=== PATIENT | female | born 1965 | race Caucasian/White ===

== ENCOUNTER 2016-06-17 15:22 | Outpatient (CLI) | END 2016-06-17 15:23 | disposition home or self-care (01) | LOC: LAB 15:22 | PROVIDERS: ATTEND Nurse Practitioner Family | DX: J02.9 Acute pharyngitis, unspecified (principal) | CPT/HCPCS: 87651; 87880 ==

== ENCOUNTER 2016-08-15 14:10 | Outpatient (CLI) ==
--- NOTE | 2016-08-17 09:01 | MAMMO ---
EXAM: Bilateral digital screening mammogram History: Screening Comparison: Bilateral mammogram 08/05/2015 Findings: MLO and CC views of bilateral breasts demonstrate scattered fibroglandular breast parench yma. A stable benign intramammary lymph node within the left breast. There are no dominant masses, no suspicious microcalcifications and no architectural distortions Impression: Benign stable mammogram. Recommend followup routine screening mammography in 1 year. BIRADS 2
== END 2016-08-15 14:11 | disposition home or self-care (01) ==
LOC: RAD 14:10
PROVIDERS: ATTEND Nurse Practitioner Family
DX: Z12.31 Encounter for screening mammogram for malignant neoplasm of breast (principal)

== ENCOUNTER 2017-08-21 10:53 | Outpatient (CLI) | END 2017-08-21 10:54 | disposition home or self-care (01) | LOC: FCC-LAB 10:53 | PROVIDERS: ATTEND Nurse Practitioner Family | DX: M79.1 Myalgia (principal); R68.83 Chills (without fever) | CPT/HCPCS: 87804 ==

== ENCOUNTER 2017-08-30 14:43 | Outpatient (CLI) | END 2017-08-30 14:44 | disposition home or self-care (01) | LOC: RAD 14:43 | PROVIDERS: ATTEND Nurse Practitioner Family | DX: Z12.31 Encounter for screening mammogram for malignant neoplasm of breast (principal) | CPT/HCPCS: 77067 ==

== ENCOUNTER 2018-07-17 14:52 | Outpatient (CLI) | END 2018-07-17 14:53 | disposition home or self-care (01) | LOC: RHC-LAB 14:52 | PROVIDERS: ATTEND Nurse Practitioner Family | DX: R05 Cough (principal) | CPT/HCPCS: 87502; 87651 ==

== ENCOUNTER 2018-10-16 14:51 | Outpatient (CLI) ==
--- NOTE | 2018-10-17 10:08 | MAMMO ---
EXAM: Bilateral digital screening mammogram (2-D and 3-D) History: Screening Comparison: Bilateral mammogram 08/30/2017 Findings: MLO and CC views of bilateral breasts demonstrate scattered fibroglandular breast parenchy ma. Stable benign lymph node within the upper-outer quadrant of the left breast. There are no suspi cious masses, no suspicious microcalcifications and no architectural distortions Impression: Benign stable mammogram. Recommend followup routine screening mammography in 1 year. BIRADS 2, benign
== END 2018-10-16 14:52 | disposition home or self-care (01) ==
LOC: RAD 14:51
PROVIDERS: ATTEND Nurse Practitioner Family
DX: Z12.31 Encounter for screening mammogram for malignant neoplasm of breast (principal)